=== PATIENT | female | born 1975 | race Caucasian/White ===

== ENCOUNTER → 2016-05-13 | Outpatient (CLI) | payer OTHER, SELFPAY | LOC: EXRD 14:44 | DX: M54.9 Dorsalgia, unspecified (principal); M47.814 Spondylosis without myelopathy or radiculopathy, thoracic region | CPT/HCPCS: 72070; 73010 ==

== ENCOUNTER → 2016-07-29 | Outpatient (CLI) | payer OTHER, SELFPAY | LOC: RAD 08:38 | DX: R31.29 Other microscopic hematuria (principal) | CPT/HCPCS: 74400; Q9962 ==

== ENCOUNTER → 2020-09-25 | Outpatient (CLI) | payer BC ==
[~2020-09-25] MED LIST: ANTIVERT 25MG T25 MG PO; CIPRO500 MG PO; ESTRA; HYDROCODON-ACE1 EAC4 PO; OMEPRAZOLE40 MG PO; PERCOCET 10-321 EACH PO; ZOLOFT25 MG PO
== END ==
LOC: KOH-I 16:48
DX: M54.5 Low back pain (principal); N20.0 Calculus of kidney
CPT/HCPCS: 72100

== ENCOUNTER 2020-10-18 13:14 | Emergency (ER) | payer BC ==
[~2020-10-18 13:14] MED LIST changes: -CIPRO500 MG PO; -HYDROCODON-ACE1 EAC4 PO
[2020-10-18 13:59] LABS: HEMOGLOBIN 13.6 gm/dl (12.3-15.3); RED BLOOD COUNT 4.5 M/UL (4.00-5.10); WHITE BLOOD COUNT 8.6 K/UL (4.5-11.0)
[2020-10-18 14:16] LABS: BUN/CREATININE RATIO 13 (0-10)
[2020-10-18] MEDS ORDERED: CIPRO500 MG PO (15:01)
[2020-10-18] MEDS ORDERED: HYDROCODON-ACE1 EAC4 PO (15:01)
== END 2020-10-18 15:18 | disposition home or self-care (01) ==
LOC: ER1 13:14
PROVIDERS: Physician Assistant Medical
DX: N13.30 Unspecified hydronephrosis (principal); Z87.442 Personal history of urinary calculi; Z90.89 Acquired absence of other organs
CPT/HCPCS: 80053; 81001; 85025; 87086; 99284